=== PATIENT | male | born 1940 ===

== ENCOUNTER 2024-07-22 06:20 | Day surgery (SDC) | payer MEDICARE, OTHER, SELFPAY ==
[2024-07-04 13:13] VITALS: BMI 31.7
[2024-07-04 13:42] LABS: Hematocrit 46.4 % (39.0-52.0); Hemoglobin 15.4 g/dL (13.0-18.0); Mean Corp Hgb Conc. 33.2 g/dL (33.0-37.0); Mean Corpuscular Hgb 31.3 pg (27.0-31.0); Mean Corpuscular Volume 94.3 fL (80.0-94.0); Mean Platelet Volume 10.6 fL (7.4-10.4); Platelet Count 176 10^3/uL (130-400); Red Blood Cell Count 4.92 10^6/uL (4.70-6.10); Red Cell Dist. Width 13.2 % (11.5-14.5); White Blood Cell Count 7.3 10^3/uL (4.8-10.8)
[2024-07-04 14:05] LABS: ALT (SGPT) 19 U/L (0-50); AST (SGOT) 27 U/L (17-59); Albumin 4.1 g/dl (3.5-5.0); Alkaline Phosphatase 73 U/L (38-126); Blood Urea Nitrogen 24 mg/dl (9-20); Calcium 9.2 mg/dl (8.4-10.2); Carbon Dioxide 30 mmol/L (22-30); Chloride 99 mmol/L (98-107); Estimated Creatinine Clearance 81 ml/min; Glucose 91 mg/dl (70-99); Potassium 4.2 mmol/L (3.5-5.1); Sodium 136 mmol/L (135-145); Total Protein 6.7 g/dl (6.3-8.2); eGFR > 60.00
[2024-07-04 14:31] LABS: Glycohemoglobin (HgbA1c) 5.8 % (4.0-5.6)
[2024-07-16 16:00] VITALS: BMI 31.7
[2024-07-22] VITALS (9 sets, daily range): BP systolic 148–171; BP diastolic 82–92
[2024-07-22] MEDS: NORMOSOL-R/PLASMALYTE-A 1000 IV (07:49)
[2024-07-22] MEDS: CELEBREX 200 MG PO (07:49)
[2024-07-22] MEDS: BACTROBAN NASAL 1 GRAM NASAL (07:49)
[2024-07-22] MEDS: TYLENOL 1000 MG PO (07:49)
[2024-07-22] MEDS: ANCEF 5 IV (13:28)
== END 2024-07-22 13:51 | disposition home or self-care (01) ==
LOC: SDS 06:20
PROVIDERS: ATTENDING PHYSICIAN Specialist; FAMILY PHYSICIAN Family Medicine
DX: M19.012 Primary osteoarthritis, left shoulder (principal); Z91.81 History of falling; Z87.39 Personal history of other diseases of the musculoskeletal system and connective tissue
CPT/HCPCS: 23472; 36415; 73020; 80053; 83036; 85027; 87070; 93005; C1713; C1776

== ENCOUNTER 2024-10-13 07:35 | Emergency (ER) | payer MEDICARE, OTHER, SELFPAY ==
[2024-10-13 07:46] VITALS: BP 144/74
--- NOTE | 2024-10-13 09:08 | ED.SKININJ ---
HPI-Injury
General
Chief Complaint: Skin Surface Trauma
Source: patient
Exam Limitations: none
Time Seen by Provider: 10/13/24 08:53
History of Present Illness-Injury
Initial Injury comments:
84-year-old male not on blood thinners presents with skin tear to left forearm he sustained yesterday. He got it caught on a piece of his tractor. No numbness or tingling loss of function. Last tetanus unknown. cleaned it out with hydrogen
peroxide and put a dressing on. No other complaints at this time
Phy Exam
Physical Exam
Physical Exam:
General: Well-appearing male no acute respiratory distress
Skin: Left volar forearm with skin tear measuring about 8 cm in total length this is superficial nature without fatty tissue involvement flaps of skin are laid nicely on the bed of the wound. No significant bleeding no surrounding ecchymosis or
swelling
Course
Orders/Labs/Results
Orders:
Orders
10/13/24 09:07
Tetanus/Diphth/Acelpertussis [Adacel] 0.5 ml IM .ONCE ONE
Vital Signs
Initial and Last Documented VS:
Initial Vital Signs
Temp Pulse Resp BP Pulse Ox
98.4 F 63 18 144/74 98
10/13/24 07:46 10/13/24 07:46 10/13/24 07:46 10/13/24 07:46 10/13/24 07:46
Last Documented Vital Signs
Temp Pulse Resp BP Pulse Ox
98.4 F 63 18 144/74 98
10/13/24 07:46 10/13/24 07:46 10/13/24 07:46 10/13/24 07:46 10/13/24 07:46
MDM/Problems Addressed
Differential Diagnosis Includes:
Skin tear left forearm. This was irrigated with saline dried held in approximation Mastisol and Steri-Strips. Nonstick gauze dressing and a wrap was applied tetanus vaccine updated. Wound care instructions were given stable for discharge
*Critical Care Note
Total Time (30-74mins, 75-104mins- exclusive of procedures): Not Applicable
ED Attending Note
-
Portions of this chart may have been created with voice recognition software.� Occasional wrong word or��sound alike� substitutions may have occurred due to the inherent limitations of voice recognition software.
Discharge Plan
Departure
Patient Disposition: Home (Routine Discharge)
Date of Disposition: 10/13/24
Time of Disposition: 09:10
Patient with high blood pressure during this ER visit?: No
Discharge Problem:
Skin tear
Instructions: Wound Care (DC)
Prescriptions:
No Action
atorvastatin 10 mg Tablet
10 mg PO HS
metoprolol succinate 25 mg Tablet Extended Release 24 Hr
25 mg PO DAILY
cyanocobalamin (vitamin B-12) 1,000 mcg/mL Solution
1,000 mcg IM QMONTH
mupirocin 2 % ointment
1 applic topical BID Qty: 1 0RF
celecoxib 200 mg capsule
200 mg PO DAILY Qty: 14 0RF
Rx Instructions:
*take with food
*space out 2 hours from aspirin
famotidine 20 mg tablet
20 mg PO HS Qty: 30 0RF
Rx Instructions:
post-op
dexamethasone 4 mg tablet
4 mg PO BID Qty: 6 0RF
Rx Instructions:
take with food
post-op use only
gabapentin 300 mg capsule
300 mg PO HS Qty: 10 0RF
ondansetron 4 mg tablet,disintegrating
4 mg PO Q6H PRN (Reason: n/v) Qty: 20 0RF
Rx Instructions:
take 1/2h b/f pain med if recurrent nausea
allow to dissolve in mouth w/o water
oxycodone 5 mg tablet
5 mg PO Q6H PRN (Reason: 1 tab moderate pain, 2 tabs severe pain) Qty: 30 0RF
Rx Instructions:
Ongoing therapy
acetaminophen [Acetaminophen Extra Strength] 500 mg tablet
1,000 mg PO Q6H Qty: 60 0RF
Rx Instructions:
DO NOT exceed >4000 mg daily.
docusate sodium [Colace] 100 mg capsule
100 mg PO BID Qty: 30 0RF
sennosides [senna] 8.6 mg tablet
17.2 mg PO BID Qty: 30 0RF
aspirin 325 mg tablet
325 mg PO DAILY Qty: 30 0RF
Rx Instructions:
Take daily x4 weeks for blood clot prevention
lisinopril 20 mg Tablet
20 mg PO DAILY Qty: 0 0RF
Rx Instructions:
HOLD if systolic blood pressure <130 while on Oxycodone.
hydrochlorothiazide 12.5 mg Tablet
12.5 mg PO DAILY Qty: 0 0RF
Rx Instructions:
HOLD if systolic blood pressure <130 while on Oxycodone.
Activity Restrictions/Additional Instructions:
Change dressing daily with nonstick gauze and gauze wrap. Allow the Steri-Strips to fall off on their own. Return if needed on the
Interventions
Interventions:
*Risk Screen - Suicide Last Done: 10/13/24 07:46
*General Assessment Last Done: 10/13/24 07:46
*Neglect/Abuse Screening Last Done: 10/13/24 07:46
Discharge Date and Time
Print Language: FRENCH
[2024-10-13] MEDS: ADACEL 0.5 ML IM (09:12)
== END 2024-10-13 09:21 | disposition home or self-care (01) ==
LOC: EMR 07:35
PROVIDERS: EMERGENCY PHYSICIAN Emergency Medicine; FAMILY PHYSICIAN Family Medicine
DX: S51.812A Laceration without foreign body of left forearm, initial encounter (principal); W22.8XXA Striking against or struck by other objects, initial encounter; Z23 Encounter for immunization
CPT/HCPCS: 99282; 90471; 90715

== ENCOUNTER → 2024-11-21 08:56 | Outpatient (REF) | payer MEDICARE, OTHER, SELFPAY | LOC: HWRAD 08:56 | PROVIDERS: ATTENDING PHYSICIAN Physician Assistant Surgical; FAMILY PHYSICIAN Family Medicine; REFERRING PHYSICIAN Specialist | DX: M25.512 Pain in left shoulder (principal) | CPT/HCPCS: 73200 ==